=== PATIENT | male | born 1990 | race Asian ===

== ENCOUNTER 2018-02-01 09:33 | Emergency (ER) | END 2018-02-01 13:06 | disposition home or self-care (01) ==

== ENCOUNTER 2018-06-17 20:44 | Emergency (ER) | payer OTHER ==
[~2018-06-17] VITALS: Ht 172.7 cm; Wt 58.2 kg
[~2018-06-17 20:44] MED LIST: ACET500C5 PO
[2018-06-17 20:48] VITALS: Ht 172.7 cm; Wt 58.2 kg
--- NOTE | 2018-06-18 | ERD ---
ER Documentation Chief Complaint Chief Complaint CHEST PAIN WITH SOB [id number]; POSS EPIGASTRIC/GERD; ATE 4 TACOS THEN PAIN HPI 28-year-old male, previously healthy, presents the emergency department, complaining of sharp epigastric pain after eating tackers. The patient denies palpitations, no shortness of breath, no dizziness, no history of heart disease. ROS All systems reviewed and are negative except as per history of present illness. Medications Home Meds Active Scripts Acetaminophen* (Tylophen*) 500 Mg Capsule, 1 CAP PO Q6H PRN for PAIN AND OR ELEVATED TEMP, #20 CAP Prov:TRACE COREY PA-C 02/01/18 Allergies Allergies: Coded Allergies: No Known Allergy (Unverified , 04/08/14) PMhx/Soc Medical and Surgical Hx: pt denies Medical Hx, pt denies Surgical Hx Hx Alcohol Use: No Hx Substance Use: No Hx Tobacco Use: No Smoking Status: Never smoker FmHx Family History: No diabetes, No coronary disease Physical Exam Vitals Vital Signs Date Temp Pulse Resp B/P (MAP) Pulse Ox O2 O2 Flow FiO2 Time Delivery Rate 06/17/18 98.8 93 19 150/82 100 20:48 (104) Physical Exam Const: No acute distress Head: Atraumatic Eyes: Normal Conjunctiva ENT: Normal External Ears, Nose and Mouth. Neck: Full range of motion. No meningismus. Resp: Clear to auscultation bilaterally Cardio: Regular rate and rhythm, no murmurs Abd: Soft, non tender, non distended. Normal bowel sounds Skin: No petechiae or rashes Back: No midline or flank tenderness Ext: No cyanosis, or edema Neur: Awake and alert Psych: Normal Mood and Affect Results 24 hrs EKG read by me: Rate/Rhythm: Regular rate and rhythm at a rate of 87 Intervals: QRS [address] changes. No T wave inversion. RR' pattern in V1 and V2 Impression: No evidence of acute ischemia or arrhythmia Procedures/MDM Vital signs stable. Differential diagnosis include but not limited to: URI, PNA, chostochondritis, GERD, musculoskeletal injury, less likely PE, pericarditis, endocarditis. Pertinent Data: 12 Lead ECG: Sinus rhythm, no ST changes, normal T wave, normal intervals Radiology: Chest x-rays: Normal Physical examination and clinical presentation consistent most likely with atypical chest pain most likely secondary to costochondritis. During the ED course the patient remained stable, no new complaints. Results and clinical impression discussed with patient who agrees with management. The patient is stable to be treated outpatient and will be discharged home with a Rx for ibuprofen; some side effects of prescribed medications (headache, rash, nausea, vomiting, diarrhea, drowsiness, habituation, bleeding, hypertension, interactions with other medications) were reviewed. The patient was instructed to follow up with the primary care provider in the next 48h. If symptoms persist, worsen or new symptoms develop, then patient should return to the ED immediately. Instructions explained and given directly by me to the patient with acknowledgment and demonstrated understanding. Disclaimer: Inadvertent spelling and grammatical errors are likely due to EHR/dictation software use and do not reflect on the overall quality of patient care. Also, please note that the electronic time recorded on this note does not necessarily reflect the actual time of the patient encounter. Departure Diagnosis: Primary Impression: Chest pain Condition: Stable Additional Instructions: Thank you very much for allowing us to participate in your care. Your health and safety is our top priority at [facility]. Call your primary care doctor TOMORROW for an appointment during the next 2-4 days and bring all the information and medications prescribed. Have prescriptions filled and follow precisely the directions on the label. If the symptoms get worse and your provider is unavailable, return to the Emergency Department immediately. OSCAR GRANGER MD Jun 17, 2018 23:59
[2018-06-18] MEDS ORDERED: ACET325T33 PO (01:26)
[2018-06-18 01:45] VITALS: BP 138/66; PULSE 77; RESP 19
== END 2018-06-18 01:46 | disposition home or self-care (01) ==
LOC: FTE 20:44
DX: R07.9 Chest pain, unspecified (principal)
CPT/HCPCS: 71046; 84484; 93005; Z7502